=== PATIENT | female | born 1985 | race Caucasian/White ===

== ENCOUNTER 2018-02-11 18:16 | Emergency (ER) | payer MEDICAID ==
[~2018-02-11] VITALS: Ht 160 cm; Wt 73.0 kg
[2018-02-11 18:29] VITALS: Ht 160 cm; Wt 73.0 kg
[2018-02-11 20:09] VITALS: BP 129/80
== END 2018-02-11 20:09 | disposition home or self-care (01) ==
LOC: ED 18:16
DX: J06.9 Acute upper respiratory infection, unspecified (principal)